=== PATIENT | female | born 1965 | race African-American/Black ===

== ENCOUNTER 2021-08-29 00:25 | Day surgery (SDC) | payer OTHER, SELFPAY ==
[2021-08-22 14:19] VITALS: BMI 42.5
--- NOTE | 2021-08-22 14:34 | PC.NURSE ---
Report to the Outpatient Waiting Room, entrance under the green pavilion located off [facility], at time 0800 on date 08/29/21. OR Time: 1000. - You and your visitor will be asked a series of questions to screen for COVID 19 for your protection. - A mask is required within the hospital. One visitor will be allowed to accompany the patient into the hospital. Patients visitor will be instructed to remain with patient at all times or leave the building. We will allow the visitor to come back to the postoperative area when patient is ready. Preoperative COVID Testing Requirements: No COVID Test needed if: (proof is required; if not received patient will have Rapid Test prior to entry) - Patient has received COVID Vaccine at least 14 days prior to procedure date or - Patient has positive COVID test result within last 90 days of surgery date. COVID Test needed if above criteria is not met Patients may have clear liquids (water, carbonated beverages, clear teas, apple juice) until 3 hours prior to surgery with a maximum of 20 ounces. - No food from midnight until time of surgery Take the following medications with a SIP of water the morning of surgery: GABAPENTIN, DILTIAZEM, METOPROLOL, TIZANIDINE, ALLOPURINOL Medications to discontinue per physician: VITAMINS/SUPPLEMENTS Date to take last dose: 08/25/21 Please no make-up, nail angolan, hairspray, perfume, deodorant, or body powder the day of surgery. No jewelry (including any body piercings) or valuables the day of surgery, leave them at home. Please take a shower or bath the night before, or the morning of, surgery with an antibacterial soap. Wear comfortable, loose fitting clothing. - Jewelry must be removed prior to entering the operating room. Rings and piercings that are not removed may be cut off. - The hospital will not accept responsibility for valuables. - Please leave all valuables, including medications, at home the day of surgery. If you are going home after surgery, a licensed mechanic driver must drive you home. - NO public transportation without another adult. - We recommend that an adult stay with you for 24 hours following discharge. - We also recommend that you do not drive, make important decision, drink alcoholic beverages, or take any drugs that were not prescribed by your health care provider for at least 24 hours after your discharge time. Follow any additional instructions given to you from your surgeon. Telephone instructions given to HANNAH WEBBER and asked if any additional questions and then verbalized understanding. Patient advised to call surgeon office or pre surgery nurse liaison [phone] if any additional questions.
--- NOTE | 2021-08-28 13:23 | WPDANESEPPF ---
Anes - Initial Pre Proc Eval Procedure: Operation Date: 08/29/21 10:00 Proposed Procedures p Release Right First and Second A-1 Jaleel, Inject Steroid at Right Triscaphe Joint - Mik Leong MD Date/Time: 08/28/21 13:23 Surgeon: Mik Leong MD Pre Op Diagnosis: rt 1st and 2nd trigger digit, rt triscaphe joint Patient Data Age: 56 Gender: F Height: 1.65 m Weight: 116 kg Allergies Allergy/AdvReac Type Severity Reaction Status Date / Time crab Allergy Anaphylaxis Verified 08/22/21 14:12 codeine AdvReac Itching Verified 08/22/21 14:12 iohexol AdvReac Itching Verified 08/22/21 14:12 [From contrast - CT, X-RAY] morphine AdvReac Itching Verified 08/22/21 14:12 Home Medications Medication Instructions Recorded Confirmed Type albuterol sulfate 1 inh INHALATION QID PRN 08/22/21 08/22/21 History allopurinol 100 mg PO BID 08/22/21 08/22/21 History atorvastatin 40 mg PO HS 08/22/21 08/22/21 History cholecalciferol (vitamin D3) 50 mcg PO DAILY 08/22/21 08/22/21 History [Vitamin D3] diltiazem HCl 120 mg PO DAILY 08/22/21 08/22/21 History famotidine 20 mg PO DAILY 08/22/21 08/22/21 History folic acid 1 mg PO DAILY 08/22/21 08/22/21 History furosemide 40 mg PO DAILY 08/22/21 08/22/21 History gabapentin 300 mg PO TID 08/22/21 08/22/21 History insulin glargine [Lantus Solostar 55 unit SUBCUT QPM 08/22/21 08/22/21 History U-100 Insulin] loratadine 10 mg PO DAILY 08/22/21 08/22/21 History magnesium oxide 400 mg PO DAILY 08/22/21 08/22/21 History metformin 500 mg PO BID 08/22/21 08/22/21 History metoprolol succinate 50 mg PO DAILY 08/22/21 08/22/21 History omega-3 fatty acids [Fish Oil] 1,000 mg PO DAILY 08/22/21 08/22/21 History tizanidine 2 mg PO TID 08/22/21 08/22/21 History trazodone 50 mg PO HS 08/22/21 08/22/21 History warfarin 1 mg PO USEASDIRECTD 08/22/21 08/22/21 History warfarin 5 mg PO DAILY 08/22/21 08/22/21 History Patient hx anesthesia problems: none Family hx anesthesia problems: none Results Review: All pre-operative results and documents have been reviewed as part of the pre-operative evaluation. [facility] Past Medical History Medical History (Updated 08/28/21 @ 13:24 by Tirso Pablo DO) Arrhythmia CHF (congestive heart failure) COPD (chronic obstructive pulmonary disease) Diabetes type 2, controlled Hyperlipidemia Hypertension PAZ (obstructive sleep apnea) Pulmonary embolism Surgical History Surgical History (Updated 08/28/21 @ 13:24 by Tirso Pablo DO) History of cholecystectomy History of tubal ligation Social History Social History Smoking packs per day: 0.5 Smoking cigarettes per day: 10.0 Years smoked: 42 Smoking pack-years: 21.00 Smoking status: Current every day smoker Tobacco type: cigarettes Alcohol intake: current Drinks per week: 3 Substance use: never Substance use type: does not use Living arrangements: alone Spiritual care concerns: No Anes - Eval Final PreProcedure Day of Procedure 08/28/21 13:23 Patient weight: morbidly obese Heart: regular rate and rhythm Lungs: clear to auscultation and normal air movement Airway: Mallampati scale class II Neurological: alert and oriented Last oral intake: >/= 8 hours ASA classification: IV Emergent: no Anesthetic plan: proceed Anesthesia type and monitoring: general GIVS and standard monitoring Results Review: All pre-operative results and documents have been reviewed as part of the pre-operative evaluation. Informed Consent: The patient's anesthetic plan and its attendant risks and benefits were discussed with the patient/family/POA. Questions were solicited and answers provided to the satisfaction of the patient/family/POA.
--- NOTE | 2021-08-29 07:25 | WPDHPUPDATE1 ---
History and Physical Update Update Date/Time: 08/29/21 07:25 History and Physical has been reviewed, including an updated exam of the patient. There are NO changes in the patient's condition. Risks, benefits, and alternatives have been discussed and questions answered. Patient agrees to proceed with procedure.
[2021-08-29 08:00] VITALS: BP 134/71; PULSE 73; RESP 16; TEMP 36.3; O2SAT 98
[2021-08-29] MEDS: LACTATED RINGERS 1,000 ML 30 ML IV CONT (08:15)
[2021-08-29 08:39] LABS: Glucose Point of Care 158 mg/dl (65-105)
[2021-08-29 08:51] LABS: INR 1.8; Partial Thromboplastin Time 38.8 SECONDS (22.3-36.8); Prothrombin Time 19.8 Seconds (11.1-14.7)
[2021-08-29 08:54] LABS: Anion Gap 3 mmol/L (8-16); Blood Urea Nitrogen 18 mg/dL (7-17); Carbon Dioxide 30 mmol/L (22-30); Chloride 109 mmol/L (98-107); Estimated CRCL calculation 54 ml/min; Estimated Glomerular Filt Rate 51; Glucose 155 mg/dL (65-110); Sodium 142 mmol/L (137-145)
[2021-08-29] MEDS: BETAMETHASONE SOD PHOS/ACETATE 30 MG/5 ML VIAL 6 MG XX (10:26)
[2021-08-29 12:10] VITALS: BP 128/69; PULSE 75; RESP 16; O2SAT 93
[2021-08-29 12:29] LABS: Glucose Point of Care 117 mg/dl (65-105)
--- NOTE | 2021-08-29 12:29 | W.PM.PROC2 ---
Procedure Note - Detailed Date of Procedure 08/29/21 Pre-op Diagnosis rt 1st and 2nd trigger digit, rt triscaphe joint Post-op Diagnosis Same Surgeon Mik Leong,
[2021-08-29 12:40] VITALS: BP 132/70; PULSE 74; RESP 16; O2SAT 96
[2021-08-29 13:10] VITALS: BP 131/69; PULSE 72; RESP 16
[2021-08-29] MEDS: fentaNYL CITRATE INJ (*CRX) 100 MCG/2 ML VIAL 25 MCG IV PUSH ×2 (13:26→13:28)
[2021-08-29 13:40] VITALS: BP 134/75; PULSE 68; RESP 16
[2021-08-29] MEDS: oxyCODONE HCL (*CRX) 5 MG TAB IR PO (13:45)
[2021-08-29 14:05] VITALS: BP 131/75; PULSE 71; RESP 16
--- NOTE | 2021-08-29 18:52 | W.PM.PROC2 ---
Procedure Note - Detailed Date of Procedure 08/29/21 Pre-op Diagnosis rt 1st and 2nd trigger digit, rt triscaphe joint Post-op Diagnosis Other (As above and severe synovitis of the 2nd flexor tendon sheath) Procedure Performed Injection of betamethasone to the right 1st carpal metacarpal joint. Release of the right 1st A1 radha. 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 She was taken to the operating room where she is placed supine on the operating table. She was given IV sedation. The time-out was held and confirmed. The extremity was prepped and draped in usual fashion. The sites were marked and infiltrated with 1% lidocaine with epinephrine the tourniquet was inflated to 250 mmHg. The incision for the 1st A1 radha release was made and carefully dissected to reveal the flexor tendon sheath. There seemed to be very little inflammatory response there. The A1 radha was incised. The wound was eventually closed with interrupted 5 0 nylon. . the Betamethasone injection with 5.4 mg of Betamethasone was injected at the 1st carpal metacarpal joint. Attention was turned to the 2nd A1 radha site. This immediate area was a little swollen. I elected to take a diagonal incision following the distal palmar crease to expose this area expecting to find a ganglion cyst or other soft tissue swelling that might require a larger incision. We immediately encountered multilobulated silvery masses on the tendon sheath and protruding through the tendon sheath. This extended from the mid palm well past the A1 radha. Additional incisions were made in Tam fashion all the way out to the distal interphalangeal joint. The lead hand was placed beneath the patient's hand. The skin flaps were elevated and retained with silk retention sutures on hemostats. The neurovascular bundles were carefully identified and protected the thick inset of itis was taken out in pieces. A 0.5 cm fragment was sent to pathology for frozen section diagnosis. The report was that this was most likely simply chronic synovitis without known etiology. We followed that with a culture swab for aerobes and anaerobes and we asked that pathology search the specimen for acid-fast bacteria and fungi . Knowing that the thickened tissue was benign we trimmed out a fair amount of it without destroying the flexor tendon radha system. It was identified that the 2 flexor tendons in the area of the A1 radha were partly shredded by this chronic process. both seemed to the serviceable . the hand was then irrigated and the wound closed with a running 4-0 nylon suture. A bulky bandage was applied no splint and the patient was discharged from the operating room in stable condition. She was discharged home with instructions wound care and follow-up. She has a reported issue with Codeine and Morphine which caused her to itch. She thought she had tolerated the lot in the past. On this occasion in the recovery area she tolerated Percocet. Her discharged home medication was Percocet number 8 Estimated Blood Loss 5 Drains No Packing No Pathology Yes Complications No immediate complications Condition Stable Disposition Same day
== END 2021-08-29 14:15 | disposition home or self-care (01) ==
PROVIDERS: Anesthesiology; PCP Internal Medicine; Visit Provider Plastic Surgery
PROC: (CPT 26055; principal; 2021-08-29 10:00)
DX: M65.311 Trigger thumb, right thumb (principal); M65.321 Trigger finger, right index finger; M65.841 Other synovitis and tenosynovitis, right hand; I11.0 Hypertensive heart disease with heart failure; I50.9 Heart failure, unspecified; E11.9 Type 2 diabetes mellitus without complications; E78.5 Hyperlipidemia, unspecified; G47.33 Obstructive sleep apnea (adult) (pediatric); Z85.3 Personal history of malignant neoplasm of breast; F17.210 Nicotine dependence, cigarettes, uncomplicated; Z79.01 Long term (current) use of anticoagulants; Z79.84 Long term (current) use of oral hypoglycemic drugs; Z79.4 Long term (current) use of insulin; Z86.718 Personal history of other venous thrombosis and embolism; E66.01 Morbid (severe) obesity due to excess calories; Z68.42 Body mass index [BMI] 45.0-49.9, adult
CPT/HCPCS: 26055; 20600; 26160; 36415; 80048; 82948; 85610; 85730; 87070; 87075; 87205; 88305; 88312; 88331; A9270; J0702; J2250; J2704; J3010; J7120

== ENCOUNTER 2023-10-15 12:31 | Outpatient (CLI) | payer OTHER, SELFPAY ==
--- NOTE | ~2023-10-15 | MR_ITS ---
MRI of the right wrist Technique: Coronal T1 weighted and proton density fat sat images, and axial and sagittal proton-densi ty and proton-density fat-sat images were acquired. Clinical History: Osteoarthritis, swelling Findings: Scapholunate ligament is intact, and there is no widening of the scapholunate interval. Anabel otriquetral ligament is intact. TFCC is intact, without evidence of tear/perforation. Bone marrow signals are unremarkable. Joint spaces are still are intact. No degenerative or erosive c hange. No significant joint effusion. There is a 3 mm ganglion cyst at the volar aspect of the wrist, probably within the carpal tunnel (ax ial image 12). Flexor tendons and carpal tunnel otherwise are unremarkable. There is probable severe tenosynovitis of the third extensor compartment, with marked fluid distention of the tendon sheaths a nd associated debris. Remaining extensor tendons are unremarkable. No soft tissue mass or fluid colle ction identified. IMPRESSION: Findings most compatible with severe tenosynovitis of the third extensor tendon compartment. Reviewed, dictated and finalized at location M.
== END 2023-10-15 12:32 | disposition home or self-care (01) ==
LOC: ANHIMG 12:38
PROVIDERS: PCP Internal Medicine; Visit Provider Plastic Surgery
DX: M19.031 Primary osteoarthritis, right wrist (principal)
CPT/HCPCS: 73221